=== PATIENT | female | born 1980 | race Caucasian/White ===

== ENCOUNTER 2022-10-12 10:34 | Outpatient (CLI) | payer BC ==
--- NOTE | 2022-10-13 16:11 | Mammography Report ---
BILATERAL DIGITAL DIAGNOSTIC MAMMOGRAM 3D/2D: 10/12/2022 CLINICAL: Patient returns today to evaluate asymmetries in bilateral breasts. Comparison is made to exam dated: 08/30/2022 mammogram - [facility]. Both breasts are heterogeneously dense, which may obscure small masses (category c / 51-75% glandular tissue). The previously described focal asymmetry in the right breast at 11 o'clock middle depth is no longer seen, and is consistent with summation artifact. There is a 0.5 cm oval equal density focal asymmetry in the left breast at 7 o'clock middle depth. T his is seen in additional views. No other significant masses or calcifications are seen in either breast. IMPRESSION: INCOMPLETE: NEEDS ADDITIONAL IMAGING EVALUATION The previously described right breast asymmetry disperses with additional views and is consistent wit h summation artifact. The 0.5 cm oval equal density focal asymmetry in the left breast at 7 o'clock middle depth resembles a cyst or a lymph node and is indeterminate. A left ultrasound is recommended for further evaluatio n and is scheduled to immediately follow this examination. Based on the Tyrer Cuzick model (a risk assessment model) the patients lifetime risk is 8.5% and her 10 year risk is 1.1%. According to the ACR, ACS, and NCCN guidelines, an annual breast MRI exam codi g with mammogram is recommended if the patients lifetime risk is 20% or greater. This exam was interpreted at Station ID: [id number]. NOTE: For mammograms, a report in lay terms will be sent to the patient. Approximately 15% of breast malignancies will not be visualized mammographically. In the management of a palpable breast mass, a negative mammogram must not discourage biopsy of a clinically suspicious lesion. Electronically Signed By: Richard Garza M.D. aty/:10/12/2022 11:49:04 ACR BI-RADS Category 0: Incomplete 3340F PARENCHYMAL PATTERN: (D) - The breast(s) demonstrate(s) heterogeneously dense fibroglandular parenchy ma. BI-RADS CATEGORY: (0) - 0 Ultrasound [id number] Immediate follow-up LATERALITY: (L)
--- NOTE | 2022-10-13 16:11 | Ultrasound Report ---
LIMITED ULTRASOUND OF LEFT BREAST: 10/12/2022 CLINICAL: Patient returns today to evaluate a focal asymmetry in the left breast. Comparison is made to exams dated: 10/12/2022 mammogram and 08/30/2022 mammogram - [facility]. Color flow ultrasound of the left breast 7 o'clock region was performed. Almanzar scale images of the r eal-time examination were reviewed. There is a 0.5 cm x 0.2 cm x 0.5 cm wider than tall oval mass with a circumscribed margin in the left breast at 7 o'clock middle depth 4 cm from the nipple. This oval mass is hypoechoic with no posteri or acoustic shadowing or enhancement. This correlates with mammography findings. Color flow imaging demonstrates that there is no vascularity present. IMPRESSION: PROBABLY BENIGN The 0.5 cm x 0.2 cm x 0.5 cm wider than tall oval mass in the left breast resembles a lymph node or a fibroadenoma and is probably benign. A follow-up left mammogram and an ultrasound in 6 months is recommended to demonstrate stability. Findings and recommendations were conveyed to the patient during today's evaluation. This exam was interpreted at Station ID: [id number]. Electronically Signed By: Richard Garza M.D. aty/:10/12/2022 11:50:27 Ultrasound BI-RADS: 3 Probably benign BI-RADS CATEGORY: (3) - 3 Mammo and [place] [id number] 6 month follow-up LATERALITY: (L)
== END 2022-10-12 10:35 | disposition home or self-care (01) ==
LOC: DI 10:34
PROVIDERS: ATTEND Nurse Practitioner
DX: N63.24 Unspecified lump in the left breast, lower inner quadrant (principal)